=== PATIENT | male | born 1950 | race Caucasian/White ===

== ENCOUNTER → 2022-11-21 | Outpatient (CLI) | payer MEDICARE, OTHER, SELFPAY ==
--- NOTE | 2022-11-21 | DI.ECHO.S_ITS ---
Version: 1 Study ID: [id number] [place] [address] Name: YOLANDE RUTHERFORD Study Date: 11/21/2022, 2: 09 PM : 1950 BP: 156 / 94 mmHg Gender: Male Height: 74 in Age: 72 Years Weight: 235 lb BSA: 2.33 mA? Ordering: CHARLIE SARAH Referring: CHARLIE SARAH Clinician: Rosi Montez Reason For Study: CHEST PRESSURE History: Summary Statements Normal sinus rhythm. Normal LV size, wall thickness, wall motion and LV systolic function. EF is 60-65%. Normal chamber sizes. No valvular abnormalities. No prior study available for comparison. Procedure: A two-dimensional transthoracic echocardiogram with color flow and Doppler was performed. The study quality was technically adequate. There is no prior echocardiogram noted for this patient. The patient was in sinus rhythm with heart rates between 65-74 bpm during the exam. Left Ventricle: The left ventricle is normal in size and wall thickness. The ejection fraction is estimated to be 60-65%. Right Ventricle: The right ventricle is at the upper limits of normal in size. The right ventricular systolic function is normal. Atria: The left atrial size is normal. Right atrial size is normal. The inter-atrial septum is thin and hypermobile. There is no Doppler evidence for an interatrial shunt. Mitral Valve: The mitral valve is normal in structure and function. There is trace mitral regurgitation. Aortic Valve: The aortic valve is grossly normal. There is no aortic valve stenosis. No aortic regurgitation is present. Tricuspid Valve: The tricuspid valve is normal in structure and function. There is mild tricuspid regurgitation. Pulmonary artery pressures cannot be estimated because of the lack of a measurable TR jet velocity. Pulmonic Valve: The pulmonic valve is not well seen, but is grossly normal. There is no pulmonic valvular regurgitation. Great Vessels: The aortic root is normal size. The ascending aorta could not be visualized. The IVC is dilated (diameter is greater than 2.1 cm) yet it collapses greater than 50% with a sniff. This suggests a right atrial pressure of 8 mm Hg. Pericardium/ Pleura: There is no pericardial effusion. There is no pleural effusion. 2D and M-Mode Measurements and Calculations LVIDd: 5.1 cm LVOT diam: 2.41 cm LVIDs: 3.3 cm Ao root diam: 3.6 cm IVSd: 0.98 cm Ao Arch Diam (Prox Trans): 2.6 cm LVPWd: 0.78 cm LV knight. diameter/BSA (cm/m^2): 2.18 LV sys. diameter/BSA (cm/m^2): 1.44 RVD1 (basal): 4.1 cm RVD2 (mid): 2.9 cm TAPSE: 2.8 cm LA A4 area: 15.6 steep tender? IVC diam: 2.26 cm LA A2 area: 18.4 steep tender? RA area: 20.9 steep tender? LA length (vol): 4.9 cm RA long axis: 5.6 cm LA vol: 49.8 ml RA vol: 66.2 ml LA vol index: 21.4 ml/mA? RA : 28.5 ml/mA? Doppler Measurements and Calculations Ao V2 max: 133.9 cm/sec LVOT Max Mo: 111.3 cm/sec Ao V2 mean: 100.9 cm/sec LV V1 max P.0 mmHg Ao V2 VTI: 28.0 cm LV V1 VTI: 24.0 cm Ao max P.2 mmHg SV(LVOT): 109.5 ml Ao mean P.4 mmHg NEHEMIAS(I,D): 3.9 steep tender? NEHEMIAS(V,D): 3.8 steep tender? NEHEMIAS indexed to BSA (cm^2/m^2): 1.68 sev ratio: 0.86 MV E max mo: 58.1 cm/sec MV dec time: 0.29 sec MV A max mo: 66.1 cm/sec MV E/A: 0.88 Med Peak E' Mo: 6.2 cm/sec Lat Peak E' Mo: 6.7 cm/sec E/e' average: 9.0 Electronically signed by: Sweetie Bland M.D. 11/22/2022, 3: 11 AM
--- NOTE | 2022-11-22 11:06 | DI.NM.S_ITS ---
DATE OF SERVICE: PROCEDURE: Exercise stress test. INDICATIONS: Chest pain. CARDIAC STRESS: Patient underwent exercise stress test under the supervision of an attending staff. He walked on Wolfgang protocol for 7 minutes and 30 seconds, achieved maximum heart rate of 128, which was 85% of the target heart rate. Resting blood pressure 148/92 mmHg. Peak blood pressure 182/100 mmHg. Achieved 10.1 METS of workload. CLAUDIO 0%. Baseline rhythm sinus. During stress, no convincing ischemic changes seen. Some occasional PVCs without any complex ventricular arrhythmias. No chest pain or claudication. The patient felt fatigue. CONCLUSION: Exercise stress test is negative for inducible ischemia. Achieved 10.1 metabolic equivalents of workload. Mildly hypertensive blood pressure response. Some intermittent premature ventricular contractions during exercise without any complex arrhythmias like ventricular tachycardia or atrial fibrillation. Overall, low-risk exercise stress test. OnealMarcus - ALEXI/rojas/mt doc#: [id number]/job#: [id number] dd: 11/21/2022 17:21:00 dt: 11/21/2022 21:47:00 DICTATING /COPIES TO: Abelardo Bruce MD COPIES MNE: PARKER;
== END ==
LOC: ECHO 13:21
PROVIDERS: PCP Student in an Organized Health Care Education/Training Program; Referring Provider Family Medicine; Visit Provider Family Medicine
DX: I07.1 Rheumatic tricuspid insufficiency (principal); R07.89 Other chest pain
CPT/HCPCS: 93017; 93306